=== PATIENT | male | born 1975 | race Caucasian/White ===

== ENCOUNTER 2024-03-28 07:29 | Day surgery (SDC) | payer BC ==
[2024-03-28] MEDS: Lactated Ringers 1,000 ML IV SCH (07:45)
[2024-03-28] MEDS ORDERED: Midazolam 1 MG/ML 2 ML SDV ONE (08:15)
[2024-03-28] MEDS ORDERED: fentaNYL 50 MCG/ML SDV ONE ×2 (08:15)
[2024-03-28] MEDS ORDERED: Propofol 200 MG/20 ML SDV ONE ×2 (08:15)
[2024-03-28] MEDS ORDERED: Ketamine 200 MG/20 ML MDV ONE (08:15)
[2024-03-28 09:56] VITALS: BP 127/84; PULSE 56
== END 2024-03-28 09:50 | disposition home or self-care (01) ==
LOC: CC.SDS 07:29
PROVIDERS: ATTEND Family Medicine
DX: Z12.11 Encounter for screening for malignant neoplasm of colon (principal); D12.2 Benign neoplasm of ascending colon; D12.8 Benign neoplasm of rectum; D12.7 Benign neoplasm of rectosigmoid junction; K57.30 Diverticulosis of large intestine without perforation or abscess without bleeding; N52.9 Male erectile dysfunction, unspecified; M72.2 Plantar fascial fibromatosis; L82.1 Other seborrheic keratosis; Z79.899 Other long term (current) drug therapy
CPT/HCPCS: 00811; J2250; J2704; J3010; J3490; J7120